=== PATIENT | male | born 1980 | race Caucasian/White ===

== ENCOUNTER 2022-05-13 05:35 | Day surgery (SDC) | payer MEDICARE, OTHER ==
--- NOTE | 2022-05-12 11:49 | NUR ---
PHONE P[RE ADMIT COMPLETED, UNABLE TO OBTAIN CURRENT MEDICATIONS LIST DUE TO PERSON I TALKED WITH DID NOT KNOW. ASKED THEM TO FAX THE LIST TO [phone] AND THEY SAID THEY WILL. I HAVE NOT RECEIVED IT AT THIS TIME.
--- NOTE | 2022-05-12 12:10 | NUR ---
RECEIVED FAX OF MEDICATION FOR PT. INPUTED IN MED REC
[~2022-05-13] VITALS: Ht 170.2 cm; Wt 90.9 kg
[~2022-05-13 05:35] MED LIST: DEPAKOTE125 MG PO; FLUVOXAMINE MAL50 MG PO; MELATONIN1 MG PO; OMEGA 3 1,0001 EACH PO; OMEPRAZOLE20 M1 PO; ONDANSETRON ODT4 MG PO; RED YEAST RICE600 MG PO; TYLOPHEN500 MG PO; ULTRA A-D2 MG PO; ZESTRIL10 MG PO
--- NOTE | 2022-05-13 08:01 | NUR ---
05/13/22 0801 Toma,Deneen [phone] PT ARRIVED TO PACU WITH ORAL AIRWAY IN PLACE, 10L VIA MASK, JAW THRUST USED OFF AND ON TO MAINTAIN AIRWAY. HOB INCREASED AND JAW THRUST NO LONGER NEEDED. RESP EVEN AND UNLABORED.
--- NOTE | 2022-05-13 09:07 | NUR ---
LE 0835 PATIENT INTO TREATMENT ROOM. PATIENT REPORT RECIEVED FROM LORENZO MANCIA. PATIENT IS DROWSY AND SLEEPING. BREATHING EQUAL AND UNLABORED. OXYGEN SATURATIONS ABOVE 90% ON ROOM AIR. SMALL AMOUNT OF RED DRAINAGE AROUND GUMS. PATIENT IVF INFUSING. SCD'S ON. PATIENT NAIL TECHNICIAN IN ROOM. CALL LIGHT WITHIN REACH NO FUTHER NEEDS. LE 0905 PATIENT DRINKING WATER AND JELLO. NAIL TECHNICIAN AT BEDSIDE.
--- NOTE | 2022-05-13 09:49 | NUR ---
LE 0930 PATIENT HAS MET DISCHARGE CRITERIA. PATIENT DRESSED SELF. PATIENT IV D/C'D WNL. PATIENT DISCHARGE INSTRUCTION GIVEN TO CAREGIVER AND UNDERSTOOD. NO QUESTIONS AT THIS TIME. PATIENT WAS WHEELED OUT OF FACILITY TO PRIVATE AUTO.
== END 2022-05-13 09:35 | disposition home or self-care (01) ==
LOC: OPS 05:35 → DS 05:35 → OPS 07:00 → DS 07:00 → OPS 09:35
PROVIDERS: ATTEND Dentist General Practice
PROC: 0CQWXZ1 Repair of Upper Tooth, Multiple, External Approach (ICD-10-PCS; 2022-05-13)
PROC: 0CQXXZ1 Repair of Lower Tooth, Multiple, External Approach (ICD-10-PCS; principal; 2022-05-13 07:00)
DX: K05.6 Periodontal disease, unspecified (principal); F29 Unspecified psychosis not due to a substance or known physiological condition; F42.9 Obsessive-compulsive disorder, unspecified; F71 Moderate intellectual disabilities; H52.13 Myopia, bilateral; Z79.899 Other long term (current) drug therapy
CPT/HCPCS: 36415; 70320; 80048; 85025; J0330; J1100; J1885; J2250; J2405; J2704; J2765; J3010; J7121